=== PATIENT | male | born 1960 | race Native Hawaiian/Other Pacific Islander ===

== ENCOUNTER 2019-10-30 19:59 | Outpatient (CLI) | payer OTHER | END 2019-10-30 20:00 | disposition EMS.NT | LOC: EMS 19:59 | PROVIDERS: ATTEND Surgery | DX: R33.9 Retention of urine, unspecified (principal); R10.30 Lower abdominal pain, unspecified ==

== ENCOUNTER 2019-10-30 20:50 | Emergency (ER) | payer OTHER ==
--- NOTE | 2019-10-30 21:15 | ED Physician Documentation ---
History of Present Illness - Stated complaint Stated Complaint: BLADDER PAIN - Chief complaint Chief Complaint: UTI - History obtained from History obtained from: Patient - History of Present Illness Timing: Today Pain level max: 5 Pain level now: 5 - Additonal information Additional information: 59-year-old male presents to the emergency department stating he had a Andres catheter placed 2 weeks ago at [facility] in [place]. Has had bloody drainage over the past few days. States he feels the urge to urinate but does not feel that the catheter is draining well. Came in tonight for evaluation. No fevers. Nothing makes it better or worse. Review of Systems Constitutional: denies: Fever, Chills Nose: denies: Rhinorrhea / runny nose, Congestion Throat: denies: Sore throat Cardiac: denies: Chest pain / pressure, Palpitations Respiratory: denies: Dyspnea, Cough, Wheezing GI: denies: Abdominal Pain, Nausea, Vomiting, Diarrhea : denies: Dysuria Skin: denies: Rash Musculoskeletal: denies: Neck pain, Back pain Neurologic: denies: Focal weakness, Numbness, Headache PD PAST MEDICAL HISTORY - Past Medical History Cardiovascular: None Respiratory: None Neuro: None Endocrine/Autoimmune: None : Other HEENT: None Derm: None Other Past Medical History: prostate ca - Past Surgical History Past Surgical History: Yes - Present Medications Home Medications: Ambulatory Orders Medication Instructions Recorded Confirmed Glipizide 5 mg PO DAILY 10/30/19 10/30/19 Prednisone 5 mg PO BID 10/30/19 10/30/19 dexAMETHasone [Dexamethasone] 4 mg PO DAILY 10/30/19 10/30/19 - Allergies Allergies/Adverse Reactions: Allergies Allergy/AdvReac Type Severity Reaction Status Date / Time No Known Drug Allergies Allergy Verified 10/30/19 20:56 - Social History Does the pt smoke?: No Smoking Status: Never smoker Does the pt drink ETOH?: No Does the pt have substance abuse?: No PD ED PE NORMAL - Vitals Vital signs reviewed: Yes - General General: Alert and oriented X 3, No acute distress - HEENT HEENT: Moist mucous membranes - Neck Neck: Supple, no meningeal sign - Cardiac Cardiac: RRR, Strong equal pulses - Respiratory Respiratory: No respiratory distress, Clear bilaterally - Abdomen Abdomen: Soft, Non tender, Non distended - Male Male : Other (andres with hematuria) - Derm Derm: Warm and dry - Extremities Extremities: No edema - Neuro Neuro: Alert and oriented X 3 Results - Vitals Vitals: Vital Signs - 24 hr 10/30/19 10/30/19 10/30/19 20:57 21:45 23:09 Temperature 36.6 C 36.5 C Heart Rate 90 77 95 Respiratory 20 18 24 Rate Blood Pressure 137/93 H 101/78 131/90 H O2 Saturation 98 98 99 Oxygen O2 Source Room air - Labs Labs: Laboratory Tests 10/30/19 21:46 Urine Color RED/BLOODY Urine Clarity BLOODY Urine pH 7.5 Ur Specific [place] 1.020 Urine Protein Urine Glucose (UA) Urine Ketones Urine Occult Blood LARGE H Urine Nitrite Urine Bilirubin NEGATIVE Urine Urobilinogen 1 (NORMAL) Ur Leukocyte Esterase Urine RBC TNTC H Urine WBC 0-3 Ur Squamous Epith Cells NONE SEEN Urine Bacteria None Seen Ur Microscopic Review INDICATED Urine Culture Comments NOT INDICATED PD MEDICAL DECISION MAKING - ED course Complexity details: re-evaluated patient, considered differential, d/w patient ED course: 59-year-old male presents with gross hematuria which appears to be clogging his Andres catheter. A new Andres catheter was placed and is draining well. He has prostate cancer and states that his oncologist states that he will have hematuria throughout the treatment. No fevers. No other acute medical issues. Patient counseled regarding signs and symptoms for which I believe and urgent re-evaluation would be necessary. Patient with good understanding of and agree ment to plan and is comfortable going home at this time This document was made in part using voice recognition software. While efforts are made to proofread this document, sound alike and grammatical errors may occur. Just prior to discharge, the patient stated he was lightheaded and feeling short of breath. Therefore an IV was placed, labs will be drawn and IV fluids given. He will be reassessed by Dr. Guidry, if the patient is asymptomatic and labs are normal, plan will be to discharge him home. Departure - Departure Clinical Impression: Andres catheter problem Qualifiers: Encounter type: initial encounter Qualified Code(s): T83.9XXA - Unspecified complication of genitourinary prosthetic device, implant and graft, initial encounter Hematuria Qualifiers: Hematuria type: gross Qualified Code(s): R31.0 - Gross hematuria Condition: Good Instructions: ED Catheter Care Andres Follow-Up: your,doctor in 1 week [Other] Comments: Return if you worsen. Follow-up with your doctor for further care. Make sure you are drinking plenty of water at home.
[2019-10-30 21:59] LABS: BILIRUBIN,URINE NEGATIVE (NEGATIVE); OCCULT BLOOD,URINE LARGE (NEGATIVE); PH,URINE 7.5 PH (5.0-7.5); UROBILINOGEN,URINE 1 (NORMAL) E.U./dL (NORMAL)
[2019-10-30 22:09] LABS: CLARITY,URINE BLOODY (CLEAR)
[2019-10-30 22:11] LABS: BACTERIA,URINE None Seen /HPF (None Seen); RBC,URINE TNTC /HPF (0-5); SQUAMOUS EPITHELIAL CELL,UR NONE SEEN (<= Few)
[2019-10-30] MEDS ORDERED: SODIUM CHLORIDE 0.9% 1,000 ML IV ONE (22:42)
[2019-10-30 23:37] LABS: BASOPHILS % (AUTO) 0.1 %; EOSINOPHILS % (AUTO) 0.3 %; HGB - HEMOGLOBIN 10.2 g/dL (14.0-18.0); LYMPHOCYTES % (AUTO) 8.2 %; MEAN CORPUSCULAR HEMOGLOBIN 30.6 pg (27.0-31.0); MEAN CORPUSCULAR HGB CONC 32.7 g/dL (32.0-36.0); MEAN CORPUSCULAR VOLUME 93.7 fL (80.0-94.0); MEAN PLATELET VOLUME 12.4 fL (7.4-11.4); MONOCYTES % (AUTO) 6.9 %; NEUTROPHILS % (AUTO) 64.4 %; PLT - PLATELET COUNT 104 10^3/uL (130-450); RED BLOOD COUNT 3.33 10^6/uL (4.70-6.10); RED CELL DISTRIBUTION WIDTH 13.3 % (12.0-15.0); WHITE BLOOD COUNT 32.7 x10^3/uL (4.8-10.8)
[2019-10-30 23:43] LABS: ABNORMAL LYMPHS % (MANUAL) 0 %
[2019-10-30 23:49] LABS: ALBUMIN 3.2 g/dL (3.2-5.5); ALBUMIN/GLOBULIN RATIO 0.9 (1.0-2.2); BILIRUBIN,TOTAL 0.7 mg/dL (0.2-1.0); CALCIUM 8.5 mg/dL (8.5-10.3); CREATININE 1.7 mg/dL (0.6-1.2); TOTAL PROTEIN 6.8 g/dL (6.7-8.2)
[2019-10-30 23:59] LABS: BAND NEUTROPHILS % (MANUAL) 3 %; LYMPHOCYTES # (MANUAL) 3.9 10^3/uL (1.5-3.5); LYMPHOCYTES % (MANUAL) 12 %; METAMYELOCYTES % (MANUAL) 1 %; MONOCYTES # (MANUAL) 0.7 10^3/uL (0.0-1.0); MYELOCYTES % (MANUAL) 12 %
[2019-10-31 00:02] LABS: RBC MORPHOLOGY (MULTIPLE) 1+ POLYCHROMASIA (NORMAL)
[2019-10-31 00:03] LABS: DIFFERENTIAL COMMENT MANUAL DIFFERENTIAL; PLATELET ESTIMATE, MANUAL DECREASED (<130,000) (NORMAL); PLATELET MORPHOLOGY NORMAL APPEARANCE (NORMAL)
[2019-10-31] MEDS ORDERED: SODIUM CHLORIDE 0.9% 1,000 ML IV ONE (00:24)
--- NOTE | 2019-10-31 00:27 | ED Physician Documentation ---
History of Present Illness - Stated complaint Stated Complaint: BLADDER PAIN - Chief complaint Chief Complaint: UTI - History obtained from History obtained from: Patient - History of Present Illness Timing: How many days ago (3) - Additonal information Additional information: 59-year-old male who is undergoing chemotherapy for prostate cancer has had a Elizabeth catheter placed and he is had some bleeding from this and he has had some clot retention. His Elizabeth catheter is not draining he was attended to by Dr. Null and the Elizabeth catheter was replaced and is draining well now the patient is complaining of some shortness of breath and lightheadedness and he was administered intravenous saline and some labs were obtained. This showed a markedly elevated white blood cell count of 32,000. I discussed with the this with the patient he indicated that he has had been having this problem with shortness of breath and lightheadedness and he was evaluated at [facility] where he is receiving his chemotherapy and he ended up being transferred to [facility] in [place] for further evaluation. He states that he had multiple tests done on his lungs they all looked well. He was told yesterday that he had elevated WBC. The patient has been treated here in the emergency department with IV saline and is feeling some better. He feels like he could go home. He is supposed to see his oncologist Dr. Baird tomorrow at [facility]. PD PAST MEDICAL HISTORY - Past Medical History Cardiovascular: None Respiratory: None Neuro: None Endocrine/Autoimmune: None : Other HEENT: None Derm: None Other Past Medical History: prostate ca - Past Surgical History Past Surgical History: Yes - Present Medications Home Medications: Ambulatory Orders Medication Instructions Recorded Confirmed Glipizide 5 mg PO DAILY 10/30/19 10/30/19 Prednisone 5 mg PO BID 10/30/19 10/30/19 dexAMETHasone [Dexamethasone] 4 mg PO DAILY 10/30/19 10/30/19 - Allergies Allergies/Adverse Reactions: Allergies Allergy/AdvReac Type Severity Reaction Status Date / Time No Known Drug Allergies Allergy Verified 10/30/19 20:56 - Social History Does the pt smoke?: No Smoking Status: Never smoker Does the pt drink ETOH?: No Does the pt have substance abuse?: No PD ED PE NORMAL - Vitals Vital signs reviewed: Yes (hypertensive ) - General General: Alert and oriented X 3, Well developed/nourished - HEENT HEENT: Atraumatic, PERRL, EOMI, Ears normal, Other (dry mucous membranes ) - Neck Neck: Supple, no meningeal sign, No bony TTP - Cardiac Cardiac: RRR, No murmur - Respiratory Respiratory: No respiratory distress - Abdomen Abdomen: Soft, Non tender - Back Back: No CVA TTP, No spinal TTP - Derm Derm: Normal color, Warm and dry, No rash - Extremities Extremities: No deformity, No edema, No calf tenderness / cord - Neuro Neuro: Alert and oriented X 3, 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, No motor deficit, No sensory deficit, Normal speech Eye Opening: Spontaneous Motor: Obeys Commands Verbal: Oriented GCS Score: 15 - Psych Psych: Other (mood is withdrawn and the affect is flat) Results - Vitals Vitals: Vital Signs - 24 hr 10/30/19 10/30/19 10/30/19 20:57 21:45 23:09 Temperature 36.6 C 36.5 C Heart Rate 90 77 95 Respiratory 20 18 24 Rate Blood Pressure 137/93 H 101/78 131/90 H O2 Saturation 98 98 99 10/31/19 10/31/19 10/31/19 01:00 03:00 04:37 Temperature Heart Rate 86 88 86 Respiratory 14 16 14 Rate Blood Pressure 142/89 H 125/87 H 124/84 H O2 Saturation 100 98 98 Oxygen O2 Source Room air - Labs Labs: Laboratory Tests 10/30/19 10/30/19 10/30/19 21:46 23:23 23:23 WBC 32.7 H RBC 3.33 L Hgb 10.2 L Hct 31.2 L MCV 93.7 MCH 30.6 MCHC 32.7 RDW 13.3 Plt Count 104 L MPV 12.4 H Neut # (Auto) Not Reportable Lymph # (Auto) Not Reportable [place] # (Auto) Not Reportable Eos # (Auto) Not Reportable Baso # (Auto) Not Reportable Absolute Nucleated RBC Not Reportable Total Counted 100 Band Neuts % (Manual) 3 Abnorm Lymph % (Manual) 0 Metamyelocytes % 1 H Myelocytes % 12 H Nucleated RBC % Not Reportable Neutrophils # (Manual) 23.9 H Lymphocytes # (Manual) 3.9 H Monocytes # (Manual) 0.7 Eosinophils # (Manual) 0.0 Basophils # (Manual) 0.0 Differential Comment MANUAL DIFFERENTIAL WBC Morphology NORMAL APPEARANCE Platelet Estimate DECREASED (<130,000) Platelet Morphology NORMAL APPEARANCE RBC Morph Micro Appear 1+ POLYCHROMASIA Sodium 138 Potassium 3.4 L Chloride 101 Carbon Dioxide 24 Anion Gap 13.0 BUN 21 H Creatinine 1.7 H Estimated GFR (MDRD) 42 L Glucose 271 H Calcium 8.5 Total Bilirubin 0.7 AST 30 ALT 18 Alkaline Phosphatase 106 Total Protein 6.8 Albumin 3.2 Globulin 3.6 Albumin/Globulin Ratio 0.9 L Lipase 28 Urine Color RED/BLOODY Urine Clarity BLOODY Urine pH 7.5 Ur Specific [place] 1.020 Urine Protein Urine Glucose (UA) Urine Ketones Urine Occult Blood LARGE H Urine Nitrite Urine Bilirubin NEGATIVE Urine Urobilinogen 1 (NORMAL) Ur Leukocyte Esterase Urine RBC TNTC H Urine WBC 0-3 Ur Squamous Epith Cells NONE SEEN Urine Bacteria None Seen Ur Microscopic Review INDICATED Urine Culture Comments NOT INDICATED Procedures - IVC sono (time) 0025 Bedside IVC sono: IVC measures (cm) (1.03), IVC collapsed c insp (cm) (complete), Dehydration (after one liter has been infused there continues to be a 1-1.5 liter deficit.) PD MEDICAL DECISION MAKING - ED course Complexity details: reviewed results, re-evaluated patient, considered differential, d/w patient ED course: 59-year-old male undergoing chemotherapy for prostate cancer has had his Elizabeth catheter changed today and he appears dehydrated on interrogation the inferior vena cava. He is administered a liter of saline prior to my seeing the patient and at that time he continues to be dehydrated and second liter of saline is administered. The patient has had extensive evaluation of his lungs and he does not think a chest x-ray is needed at this time. I have listened to the patient's lungs they sound clear and I do not suspect pneumonia as the underlying cause of his elevated white blood cell count. He indicates that this was elevated yesterday and he has an appointment to see his oncologist tomorrow. We will hydrate him further and discharge him to home with a functioning Elizabeth catheter continued hematuria and improved dehydration. The patient does not feel well and his bladder is continuing to bleed. He has appointment today with his urologist and his oncologist and he is discharged to follow up today and return if he develops further discomfort with clot retention prior to his appointment. Departure - Departure Disposition: Home, Self Care Clinical Impression: Dehydration Elizabeth catheter problem Qualifiers: Encounter type: initial encounter Qualified Code(s): T83.9XXA - Unspecified complication of genitourinary prosthetic device, implant and graft, initial encounter Hematuria Qualifiers: Hematuria type: gross Qualified Code(s): R31.0 - Gross hematuria Condition: Good Instructions: ED Dehydration, ED Catheter Care Elizabeth Follow-Up: your,doctor in 1 week [Other] Comments: Return if you worsen. Follow-up with your doctor for further care. Make sure you are drinking plenty of water at home. Follow up with your oncologist tomorrow as planned. Discharge Date/Time: 10/31/19 04:05
[2019-10-31 04:38] VITALS: BP 124/84
== END 2019-10-31 04:05 | disposition home or self-care (01) ==
LOC: ED 20:50
DX: T83.091A Other mechanical complication of indwelling urethral catheter, initial encounter (principal); Y84.6 Urinary catheterization as the cause of abnormal reaction of the patient, or of later complication, without mention of misadventure at the time of the procedure; E86.0 Dehydration; D72.829 Elevated white blood cell count, unspecified; R42 Dizziness and giddiness; R06.02 Shortness of breath; C61 Malignant neoplasm of prostate; R31.0 Gross hematuria
CPT/HCPCS: 36415; 51702; 80053; 81001; 81003; 83690; 85025; 87086; 96360; 96361; 99282

== ENCOUNTER 2021-02-03 15:34 | Outpatient (CLI) | payer OTHER | END 2021-02-03 15:35 | disposition EMS.NT | LOC: EMS 15:34 | DX: R06.00 Dyspnea, unspecified (principal); R41.82 Altered mental status, unspecified; R60.0 Localized edema ==